=== PATIENT | male | born 1975 | race Caucasian/White ===

== ENCOUNTER 2018-10-08 19:25 | Emergency (ER) | payer OTHER ==
[2018-10-08 19:31] VITALS: BP 157/111
--- NOTE | 2018-10-08 19:46 | EDPHY ---
H & P Time Seen by Provider: 10/08/18 19:33 HPI/ROS: CHIEF COMPLAINT: Left ankle injury HISTORY OF PRESENT ILLNESS: Stepped out of a van at 11:30 a.m. This morning twisting it. Left lateral ankle pain without other injuries. REVIEW OF SYSTEMS: No foot or knee symptoms PAST MEDICAL HISTORY: Negative Social history: Nonsmoker General Appearance: Alert and conversant, cooperative. Normal left knee and proximal tib-fib. Calf is nontender Achilles nontender. Lateral malleolar swelling with tenderness there. Normal medial malleolus and ankle joint is stable. Foot is nontender, skin is normal, normal motor sensory and vascular in the foot. Emergency Department course/MDM: Left ankle x-ray: Personally interpreted as sprain, no fracture. Stirrup splint ibuprofen. Patient declined narcotics. Smoking Status: Never smoked Constitutional: Initial Vital Signs Temperature (C) 36.7 C 10/08/18 19:29 Heart Rate 85 10/08/18 19:29 Respiratory Rate 20 10/08/18 19:29 Blood Pressure 157/111 H 10/08/18 19:29 O2 Sat (%) 96 10/08/18 19:29 O2 Delivery Mode Room Air Allergies/Adverse Reactions: No Known Allergies Allergy (Unverified 11/24/09 18:26) Home Medications: Medication Instructions Recorded NK [No Known Home Meds] 10/08/18 MDM/Departure - MDM Imaging Results: Imaging Impressions Ankle X-Ray 10/08/18 19:38 Impression: No acute osseous findings. Imaging: I viewed and interpreted images myself Medications Given: Discontinued Medications Ibuprofen (Motrin) 600 mg PO EDNOW ONE Stop: 10/08/18 19:59 Last Admin: 10/08/18 20:01 Dose: 600 mg - Depart Disposition: Home, Routine, Self-Care Clinical Impression: Moderate left ankle sprain Qualifiers: Encounter type: initial encounter Qualified Code(s): S93.402A - Sprain of unspecified ligament of left ankle, initial encounter Condition: Good Instructions: Ankle Sprain (ED), Ankle Stirrup Splint (ED) Additional Instructions: Activity as tolerated. Follow-up with Orthopedics in a week if not getting better. Referrals: Yrn Brown MD [Medical Doctor] - As per Instructions
[2018-10-08] MEDS ORDERED: IBUPROFEN 600 MG TAB PO ONE (19:58)
== END 2018-10-08 20:18 | disposition home or self-care (01) ==
DX: S93.402A Sprain of unspecified ligament of left ankle, initial encounter (principal); W18.43XA Slipping, tripping and stumbling without falling due to stepping from one level to another, initial encounter; Y92.810 Car as the place of occurrence of the external cause
CPT/HCPCS: L4350